=== PATIENT | female | born 1985 | race African-American/Black ===

== ENCOUNTER 2018-08-18 00:40 | Emergency (ER) | payer OTHER | END 2018-08-18 03:08 | disposition home or self-care (01) | LOC: JER 00:40 ==

== ENCOUNTER 2021-01-17 15:48 | Emergency (ER) | payer OTHER ==
[2021-01-17 15:55] VITALS: BP 130/79; PULSE 90; BMI 26.6
== END 2021-01-17 17:35 | disposition home or self-care (01) ==
LOC: JER 15:48
DX: J06.9 Acute upper respiratory infection, unspecified (principal)
CPT/HCPCS: 99283-25; C9803; U0003; U0005